=== PATIENT | female | born 1935 | race Hispanic/Latino ===

== ENCOUNTER 2017-01-20 07:34 | Day surgery (SDC) | payer MEDICARE ==
[2016-06-04 10:06] VITALS: BMI 20.7
--- NOTE | 2017-01-20 09:29 | CP.SDSHP ---
Same Day Surgery H & P - History Proposed Procedure: EGD/EUS Pre-Op Diagnosis: Panc cyst. Nausea - Allergies Allergies: Allergies No Known Allergies Allergy (Verified 06/03/16 19:01) - Physical Exam General Appearance: nl Vital Signs: Vital Signs 01/20/17 01/20/17 08:24 08:33 Temperature 97.9 F Pulse Rate 74 72 Respiratory 20 Rate Blood Pressure 129/59 L O2 Sat by Pulse 98 Oximetry Mental Status: Alert & Oriented x3 Neuro: WNL Heart: WNL Lungs: WNL GI: WNL - {Optional Preform as Required} Abdomen: WNL - Impression Impression: Nausea. Panc cyst. EGD/EUS Pt. Evaluated Today:Candidate for Anesthesia & Procedure: Yes - Date & Time Date: 01/20/17 Time: 09:29 Short Stay Discharge - Short Stay Discharge Admitting Diagnosis/Reason for Visit: ABNORMAL CT Disposition: HOME/ ROUTINE
[2017-01-20] MEDS ORDERED: Propofol 10 mg/ml Inj (20 ML) ONE (09:34)
[2017-01-20] MEDS ORDERED: Ketamine 50 mg/ml Inj (10 ml) ONE (09:36)
[2017-01-20] MEDS ORDERED: Lactated Ringer's 500 ML IV SCH (09:45)
[2017-01-20] MEDS ORDERED: cefTRIAXone IV 1 gm in Dextros 50 ML IVPB ONE (10:00)
[2017-01-20 10:32] VITALS: O2SAT 100
[2017-01-20 11:33] VITALS: BP 124/66; PULSE 77; RESP 12; TEMP 98
== END 2017-01-20 11:25 | disposition home or self-care (01) ==
LOC: C.ENDO 07:34
PROVIDERS: ATTEND Internal Medicine
DX: K29.60 Other gastritis without bleeding (principal); R93.3 Abnormal findings on diagnostic imaging of other parts of digestive tract; K86.2 Cyst of pancreas
CPT/HCPCS: 43239; 88305; J2704; J7120